=== PATIENT | female | born 1975 | race Caucasian/White ===

== ENCOUNTER 2017-07-03 17:20 | Emergency (ER) | END 2017-07-03 19:56 | disposition home or self-care (01) ==

== ENCOUNTER 2017-11-18 09:12 | Emergency (ER) | END 2017-11-18 10:03 | disposition home or self-care (01) ==

== ENCOUNTER 2018-10-04 16:23 | Emergency (ER) | payer MEDICAID ==
[~2018-10-04] VITALS: Ht 154.9 cm; Wt 103.6 kg
[~2018-10-04 16:23] MED LIST: AMOX1TAB10 PO; CALCIUM; CIPR500T4 PO; IBUP800T48 PO; IRON; NAPR-688 PO; NITR-58 PO; OFLO5DRO7 BOTH EARS; ONDA4TAB11 PO; PHEN-537 PO; PREN1TAB49
[2018-10-04 16:26] VITALS: BP 143/88; PULSE 90; RESP 16; Ht 154.9 cm; Wt 103.6 kg
[2018-10-04] MEDS ORDERED: IBUP-1542 PO (17:10)
[2018-10-04] MEDS ORDERED: BACI28.34 TOP (17:10)
--- NOTE | 2018-10-04 18:31 | ERD ---
ER Documentation Chief Complaint Chief Complaint PT C/O L GREAT TOE PAIN AFTER HITTING IT WITH A DOOR, HX DM II HPI 43-year-old female presented to the emergency department complaining of left toenail pain after accidentally hitting it against a door which lifted the toenail up. This occurred approximately 2 days ago. She reports intermittent pain which is rated 4/10 in severity and alleviated with Tylenol. She denies any pain of the toe or the foot. She denies any fevers or chills or other symptoms at this time. ROS All systems reviewed and are negative except as per history of present illness. Medications Home Meds Active Scripts Bacitracin* (Bacitracin Zinc Oint*) 28.35 Gm Oint, 1 APPLIC TOP BID, #1 TUB APPLI TO Prov:JAVAD WRIGHT PA-C 10/04/18 Ibuprofen* (Motrin*) 600 Mg Tab, 600 MG PO Q6, #30 TAB Prov:JAVAD WRIGHT PA-C 10/04/18 Ibuprofen* (Motrin*) 800 Mg Tab, 800 MG PO Q6H PRN for PAIN AND OR ELEVATED TEMP, #30 TAB Prov:JOVANI WHEELER 11/18/17 Ofloxacin Otic (Ofloxacin Otic) 5 Ml Drops, 5 DROP BOTH EARS BID for 10 Days, #1 BOTTLE Prov:JOVANI WHEELER 11/18/17 Amoxicillin/Potassium Clav (Amox-Clav 875-125 mg Tablet) 875-125 mg Tab, 1 TAB PO BID for 10 Days, #20 TAB Prov:JOVANI WHEELER 11/18/17 Naproxen* (Naproxen*) 500 Mg Tablet, 500 MG PO BID PRN for PAIN, #20 TAB Prov:AYUSH HASTINGS DO 07/03/17 Phenazopyridine Hcl* (Pyridium*) 100 Mg Tab, 100 MG PO TID PRN for URINARY PAIN, #8 TAB Prov:AYUSH HASTINGS DO 07/03/17 Ondansetron (Zofran Odt) 4 Mg Tab.rapdis, 4 MG PO Q6 for NAUSEA AND/OR VOMITING, #10 Prov:AYUSH HASTINGS DO 07/03/17 Nitrofurantoin Monohyd Macrocr* (Macrobid*) 100 Mg Capsr, 100 MG PO BID for 7 Days, CAP Prov:AYUSH HASTINGS DO 07/03/17 Ciprofloxacin Hcl* (Ciprofloxacin Hcl*) 500 Mg Tablet, 500 MG PO BID for 10 Days, TAB Prov:AYUSH HASTINGS DO 07/03/17 Reported Medications [Calcium] TAB No Conflict Check 11/05/09 [Iron] TAB No Conflict Check 11/05/09 Vits W-Ca,Fe,Fa(<1MG) () 1 Tab Tablet 11/05/09 Allergies Allergies: Coded Allergies: No Known Drug Allergy (Verified Allergy, Unknown, 11/18/17) PMhx/Soc Medical and Surgical Hx: pt denies Surgical Hx Hx Cardiac Disorders: Yes (cholesterol) Hx Alcohol Use: No Hx Substance Use: No Hx Tobacco Use: No Smoking Status: Never smoker FmHx Family History: No diabetes Physical Exam Vitals Vital Signs Date Temp Pulse Resp B/P (MAP) Pulse Ox O2 O2 Flow FiO2 Time Delivery Rate 10/04/18 98.4 90 16 143/88 100 16:26 (106) Physical Exam Const: No acute distress Head: Atraumatic Eyes: Normal Conjunctiva ENT: Normal External Ears, Nose and Mouth. Neck: Full range of motion. No meningismus. Resp: No respiratory distress. Skin: No petechiae or rashes Back: No midline or flank tenderness Ext: No cyanosis, or edema. There is some dried blood noted to the medial and lateral portion of the left great toenail. The nail is not completely avulsed. There is no tenderness palpation of the left great toe or the left foot. There is no erythema or edema of the left toe. Patient is able to ambul ate without pain or difficulty. Neur: Awake and alert Psych: Normal Mood and Affect Procedures/MDM 43-year-old female presented to the emergency department with signs and symptoms most consistent with partial avulsion of the left great toenail. There is no tenderness palpation of the left great toe or the left foot and the patient was ambulating without difficulty. Therefore, I do not feel that x-rays are indicated. Patient may be discharged home and advised to have close primary c are follow-up and return to the department immediately for any new or worsening or concerning symptoms. She was in agreement with the diagnosis, plan, need for follow-up, return precautions. Patient's blood pressure was elevated (>120/80) but appears stable without evidence of hypertension emergency or urgency. The patient is to follow-up and pursue outpatient monitoring and therapy with their primary care physician within 1 week and return immediately if they have any new, worsening, or concerning symptoms. Departure Diagnosis: Primary Impression: Injury of toenail of left foot Condition: Fair Patient Instructions: Nail Avulsion, Partial Referrals: [facility] () Usted se bethea hecho un examen mdico de control que le indica que no est en jair condicin que requiera tratamiento urgente en el Departamento de Emergencia. Un estudio ms profundo y el tratamiento de abel condicin pueden esperar sin ningn riesgo hasta que usted sea atendida/o en el consultorio de abel mdico o jair clnica. Es responsabilidad suya arreglar jair malu para el seguimiento del wilma. MANEJO DE CONDICIONES NO URGENTES EN EL FUTURO 1) Si usted tiene un mdico de atencin primaria: Usted debera llamar a abel mdico de atencin primaria antes de venir al departamento de emergencia. Despus de las horas de consultorio, abel doctor o abel asociado/a est disponible por telfono. El mdico o enfermero de teresa en el servicio telefnico puede asesorarle por oscar medio para atender el problema, o wilma contrario se puede programar jair malu. 2) Si usted no tiene un mdico de atencin primaria: Llame al mdico o clnica de referencia que aparece abajo chelsie las horas de consultorio para hacer jair malu para que le vean. CLINICAS: [facility] [phone] [address] [facility] [phone] [address] [facility] [phone] [facility] 900 [phone] [address] [facility] [phone] [address] [facility] [phone] [address] Additional Instructions: Llame al doctor MAANA y ailyn jair MALU PARA DENTRO DE 1-2 HENRIQUEZ.Dgale a la secretaria que nosotros le instruimos hacer esta malu.Avise o llame si abel condicin se empeora antes de la malu. Regresa aqui si peor o no mejor. JAVAD WRIGHT PA-C Oct 04, 2018 18:31
== END 2018-10-04 17:16 | disposition home or self-care (01) ==
LOC: FTE 16:23
DX: S91.202A Unspecified open wound of left great toe with damage to nail, initial encounter (principal); E11.9 Type 2 diabetes mellitus without complications; W22.8XXA Striking against or struck by other objects, initial encounter; Y92.9 Unspecified place or not applicable
CPT/HCPCS: 99282

== ENCOUNTER 2018-11-23 05:44 | Emergency (ER) | payer MEDICAID ==
[~2018-11-23] VITALS: Ht 162.6 cm; Wt 109.0 kg
[~2018-11-23 05:44] MED LIST changes: +BACI28.34 TOP; +CEPH-443 PO; +IBUP-1542 PO; +SULF1TAB31 PO; +TRAM50TA2 PO
[2018-11-23 05:49] VITALS: Ht 162.6 cm; Wt 109.0 kg
--- NOTE | 2018-11-23 06:30 | ERD ---
ER Documentation Chief Complaint Chief Complaint Pt reports painful bumps under L arm x 3 days HPI 43-year-old female with past medical history of diabetes type 2 presents with complaint of left armpit "bump". States she noticed tender bump to the left armpit over the past 3 days. She denies any history of abscess. She otherwise denies fevers, chills, shortness of breath, dyspnea, discharge from area, recent trauma, or any other concerning symptoms. Reports all vaccinations up-to-date and no allergies to medications. ROS All systems reviewed and are negative except as per history of present illness. Medications Home Meds Active Scripts Cephalexin* (Keflex*) 500 Mg Capsule, 500 MG PO QID for 7 Days, CAP Prov:DONOVAN FRANKS PA-C 11/23/18 Sulfamethoxazole/Trimethoprim* (Bactrim Ds* Tablet) 1 Each Tablet, 1 TAB PO BID, #14 TAB Prov:DONOVAN FRANKS PA-C 11/23/18 Tramadol HCl (Tramadol HCl) 50 Mg Tablet, 50 MG PO Q6 PRN for PAIN, #20 TAB Prov:DONOVAN FRANKS PA-C 11/23/18 Bacitracin* (Bacitracin Zinc Oint*) 28.35 Gm Oint, 1 APPLIC TOP BID, #1 TUB APPLI TO Prov:JAVAD WRIGHT PA-C 10/04/18 Ibuprofen* (Motrin*) 600 Mg Tab, 600 MG PO Q6, #30 TAB Prov:JAVAD WRIGHT PA-C 10/04/18 Ibuprofen* (Motrin*) 800 Mg Tab, 800 MG PO Q6H PRN for PAIN AND OR ELEVATED TEMP, #30 TAB Prov:JOVANI WHEELER 11/18/17 Ofloxacin Otic (Ofloxacin Otic) 5 Ml Drops, 5 DROP BOTH EARS BID for 10 Days, #1 BOTTLE Prov:JOVANI WHEELER 11/18/17 Amoxicillin/Potassium Clav (Amox-Clav 875-125 mg Tablet) 875-125 mg Tab, 1 TAB PO BID for 10 Days, #20 TAB Prov:JOVANI WHEELER 11/18/17 Naproxen* (Naproxen*) 500 Mg Tablet, 500 MG PO BID PRN for PAIN, #20 TAB Prov:AYUSH HASTINGS DO 07/03/17 Phenazopyridine Hcl* (Pyridium*) 100 Mg Tab, 100 MG PO TID PRN for URINARY PAIN, #8 TAB Prov:AYUSH HASTINGS DO 07/03/17 Ondansetron (Zofran Odt) 4 Mg Tab.rapdis, 4 MG PO Q6 for NAUSEA AND/OR VOMITING, #10 Prov:AYUSH HASTINGS DO 07/03/17 Nitrofurantoin Monohyd Macrocr* (Macrobid*) 100 Mg Capsr, 100 MG PO BID for 7 Days, CAP Prov:AYUSH HASTINGS DO 07/03/17 Ciprofloxacin Hcl* (Ciprofloxacin Hcl*) 500 Mg Tablet, 500 MG PO BID for 10 Days, TAB Prov:AYUSH HASTINGS DO 07/03/17 Reported Medications [Calcium] TAB No Conflict Check 11/05/09 [Iron] TAB No Conflict Check 11/05/09 Vits W-Ca,Fe,Fa(<1MG) () 1 Tab Tablet 11/05/09 Allergies Allergies: Coded Allergies: No Known Drug Allergy (Verified Allergy, Unknown, 11/18/17) PMhx/Soc Hx Cardiac Disorders: Yes (cholesterol) Hx Alcohol Use: No Hx Substance Use: No Hx Tobacco Use: No FmHx Family History: diabetes; No coronary disease, No other Physical Exam Vitals Vital Signs Date Temp Pulse Resp B/P (MAP) Pulse Ox O2 O2 Flow FiO2 Time Delivery Rate 11/23/18 97.8 86 16 129/86 100 05:49 (100) Physical Exam Const: No acute distress Head: Atraumatic Eyes: Normal Conjunctiva ENT: Normal External Ears, Nose and Mouth. Neck: Full range of motion. No meningismus. Resp: Clear to auscultation bilaterally Cardio: Regular rate and rhythm, no murmurs Abd: Soft, non tender, non distended. Normal bowel sounds Skin: No petechiae or rashes Back: No midline or flank tenderness Ext: Left armpit with solid nodule, not exclusively fluctuant, no surrounding erythema or redness, tender to palpation. Neur: Awake and alert Psych: Normal Mood and Affect Results 24 hrs Current Medications Medications Dose Sig/Linden Start Time Status Last (Trade) Ordered Route PRN Stop Time Admin Dose Reason Admin Lidocaine 20 ml ONCE ONCE 11/23/18 DC (Xylocaine INJ 08:00 11/23/18 2% (Mdv) 20 08:01 ml) Procedures/MDM 43-year-old female presents with left axilla abscess. ED course: Abscess Incision and Drainage with irrigation by me: Location: Left axilla Anesthesia: Local 1% Lidocaine Technique: Irrigated. Disrupted loculations w/ instrumentation Packing: None Complications: Neurovascularly intact post procedure 48 hour wound check. Scar minimization instructions given. Charge with Bactrim and Keflex. DISPOSITION PLAN: We discussed follow up with the patient's primary care doctor within 24 to 48 hours. Patient counseled regarding my diagnostic impression and care plan. Prior to discharge all questions answered. Pt agrees with treatment plan and understands strict return precautions. Precautionary instructions provided including instructions to return to the ER if not improving or for any worsening or changing symptoms or concerns. Disclaimer: Inadvertent spelling and grammatical errors are likely due to EHR/dictation software use and do not reflect on the overall quality of patient care. Also, please note that the electronic time recorded on this note does not necessarily reflect the actual time of the patient encounter. Departure Diagnosis: Primary Impression: Abscess Condition: Stable Patient Instructions: Abscess, Incision And Drainage Referrals: [facility] YOU HAVE RECEIVED A MEDICAL SCREENING EXAM AND THE RESULTS INDICATE THAT YOU DO NOT HAVE A CONDITION THAT REQUIRES URGENT TREATMENT IN THE EMERGENCY DEPARTMENT. FURTHER EVALUATION AND TREATMENT OF YOUR CONDITION CAN WAIT UNTIL YOU ARE SEEN IN YOUR DOCTORS OFFICE WITHIN THE NEXT 1-2 DAYS. IT IS YOUR RESPONSIBILITY TO MAKE AN APPOINTMENT FOR FOLOW-UP CARE. IF YOU HAVE A PRIMARY DOCTOR --you should call your primary doctor and schedule an appointment IF YOU DO NOT HAVE A PRIMARY DOCTOR YOU CAN CALL OUR PHYSICIAN REFERRAL HOTLINE AT IF YOU CAN NOT AFFORD TO SEE A PHYSICIAN YOU CAN CHOSE FROM THE FOLLOWING [facility]LY [facility] CLINICS [facility] [address] [facility]. [facility] [address] [facility] [facility] [address] [facility] [facility] [address] [facility]. [facility] [address] [facility]. [facility]. [address] Additional Instructions: Call your primary care doctor TOMORROW for an appointment during the next 2-3 days.See the doctor sooner or return here if your condition worsens before your appointment time. DONOVAN FRANKS PA-C Nov 23, 2018 06:30
[2018-11-23] MEDS ORDERED: LIDOCAINE 2% (MDV) 20 ML INJ INJ ONE (08:00)
[2018-11-23 09:46] VITALS: BP 114/66; PULSE 72; RESP 20
== END 2018-11-23 09:47 | disposition home or self-care (01) ==
LOC: FTE 05:44
DX: L02.412 Cutaneous abscess of left axilla (principal); E11.9 Type 2 diabetes mellitus without complications
CPT/HCPCS: 10060; 76536; Z7610

== ENCOUNTER 2018-11-25 16:42 | Emergency (ER) | payer MEDICAID ==
[~2018-11-25] VITALS: Ht 157.5 cm; Wt 103.1 kg
[2018-11-25 16:49] VITALS: BP 137/84; PULSE 98; RESP 20; Ht 157.5 cm; Wt 103.1 kg
--- NOTE | 2018-11-25 18:24 | ERD ---
ER Documentation Chief Complaint Chief Complaint WOUND ( LEFT AXILLARY AREA) RE CHECK HPI 43-year-old female previously healthy presents emergency department for wound check of her left axillary region after incision and drainage here 2 days ago. She denies any discharge, redness, swelling, streaking, fevers, chills, or other symptoms at this time. ROS All systems reviewed and are negative except as per history of present illness. Medications Home Meds Active Scripts Cephalexin* (Keflex*) 500 Mg Capsule, 500 MG PO QID for 7 Days, CAP Prov:DONOVAN FRANKS PA-C 11/23/18 Sulfamethoxazole/Trimethoprim* (Bactrim Ds* Tablet) 1 Each Tablet, 1 TAB PO BID, #14 TAB Prov:DONOVAN FRANKS PA-C 11/23/18 Tramadol HCl (Tramadol HCl) 50 Mg Tablet, 50 MG PO Q6 PRN for PAIN, #20 TAB Prov:DONOVAN FRANKS PA-C 11/23/18 Bacitracin* (Bacitracin Zinc Oint*) 28.35 Gm Oint, 1 APPLIC TOP BID, #1 TUB APPLI TO Prov:JAVAD WRIGHT PA-C 10/04/18 Ibuprofen* (Motrin*) 600 Mg Tab, 600 MG PO Q6, #30 TAB Prov:JAVAD WRIGHT PA-C 10/04/18 Ibuprofen* (Motrin*) 800 Mg Tab, 800 MG PO Q6H PRN for PAIN AND OR ELEVATED TEMP, #30 TAB Prov:JOVANI WHEELER 11/18/17 Ofloxacin Otic (Ofloxacin Otic) 5 Ml Drops, 5 DROP BOTH EARS BID for 10 Days, #1 BOTTLE Prov:JOVANI WHEELER 11/18/17 Amoxicillin/Potassium Clav (Amox-Clav 875-125 mg Tablet) 875-125 mg Tab, 1 TAB PO BID for 10 Days, #20 TAB Prov:JOVANI WHEELER 11/18/17 Naproxen* (Naproxen*) 500 Mg Tablet, 500 MG PO BID PRN for PAIN, #20 TAB Prov:AYUSH HASTINGS DO 07/03/17 Phenazopyridine Hcl* (Pyridium*) 100 Mg Tab, 100 MG PO TID PRN for URINARY PAIN, #8 TAB Prov:AYUSH HASTINGS DO 07/03/17 Ondansetron (Zofran Odt) 4 Mg Tab.rapdis, 4 MG PO Q6 for NAUSEA AND/OR VOMITING, #10 Prov:AYUSH HASTINGS DO 07/03/17 Nitrofurantoin Monohyd Macrocr* (Macrobid*) 100 Mg Capsr, 100 MG PO BID for 7 Days, CAP Prov:AYUSH HASTINGS DO 07/03/17 Ciprofloxacin Hcl* (Ciprofloxacin Hcl*) 500 Mg Tablet, 500 MG PO BID for 10 Days, TAB Prov:AYUSH HASTINGS DO 07/03/17 Reported Medications [Calcium] TAB No Conflict Check 11/05/09 [Iron] TAB No Conflict Check 11/05/09 Vits W-Ca,Fe,Fa(<1MG) () 1 Tab Tablet 11/05/09 Allergies Allergies: Coded Allergies: No Known Drug Allergy (Verified Allergy, Unknown, 11/18/17) PMhx/Soc Hx Cardiac Disorders: Yes (cholesterol) Hx Alcohol Use: No Hx Substance Use: No Hx Tobacco Use: No Smoking Status: Never smoker FmHx Family History: No diabetes Physical Exam Vitals Vital Signs Date Temp Pulse Resp B/P (MAP) Pulse Ox O2 O2 Flow FiO2 Time Delivery Rate 11/25/18 98.2 98 20 137/84 97 16:49 (101) Physical Exam Const: No acute distress Head: Atraumatic Eyes: Normal Conjunctiva ENT: Normal External Ears, Nose and Mouth. Neck: Full range of motion. No meningismus. Resp: No respiratory distress. Skin: Healing abscess noted to the left axillary region with packing in place. There is no surrounding erythema or streaking noted. Ext: No cyanosis, or edema Neur: Awake and alert Psych: Normal Mood and Affect Procedures/MDM Wound shows no evidence of infection, foreign body, neurologic injury, vascular injury, open joint or tendon laceration. Patient appropriate for outpatient follow up. Patient advised to continue her antibiotics as prescribed. No evidence of life-threatening pathology at time of discharge. Pt/family in agreement with discharge plan/diagnosis. Pt/family advised to return immediately with any new or worsening symptoms. Follow-up with primary care physician within the next 1-2 days. Departure Diagnosis: Primary Impression: Wound check, abscess Condition: Fair Patient Instructions: Post Op Wound Check, General Additional Instructions: Rocio james doctor MAANA y ailyn jair MALU PARA DENTRO DE 1-2 HENRIQUEZ.Dgale a la secretaria que nosotros le instruimos hacer esta malu.Avise o llame si abel condicin se empeora antes de la malu. Regresa aqui si peor o no mejor. JAVAD WRIGHT PA-C Nov 25, 2018 18:24
== END 2018-11-25 17:27 | disposition home or self-care (01) ==
LOC: FTE 16:42
DX: Z48.01 Encounter for change or removal of surgical wound dressing (principal)
CPT/HCPCS: 99281